=== PATIENT | female | born 1995 | race Two or more races ===

== ENCOUNTER 2022-06-16 11:28 | Inpatient (IN) | payer MEDICAID ==
[~2022-06-16] VITALS: Ht 157.5 cm; Wt 70.7 kg
[2022-06-16 11:51] LABS: Urine WBC None Seen /hpf (0 - 5)
[2022-06-16 12:15] LABS: Urine Amorphous Crystal MOD /hpf (None Seen); Urine Bacteria NONE SEEN /hpf (None Seen); Urine Blood Negative /uL (Negative); Urine Mucus FEW (None Seen); Urine Specific Gravity 1.025 (1.001-1.035)
[2022-06-16] MEDS ORDERED: ONDANSETRON ODT 4 MG TAB PO ONE (12:15)
[2022-06-16] MEDS ORDERED: FAMOTIDINE 20 MG TAB PO ONE (12:15)
[2022-06-16] MEDS ORDERED: LIDOCAINE VISCOUS 2% 15ML UD PO ONE (12:15)
[2022-06-16] MEDS ORDERED: MAALOX PLUS or MAALOX 30 ML PO ONE (12:15)
[2022-06-16 12:25] LABS: Basophils # (auto) 0 10 ^3/uL (0-0.2); Basophils % (auto) 0.2 % (0.0-2.0); Eosinophils # (auto) 0 10 ^3/uL (0-0.8); Eosinophils % (auto) 0.1 % (0.0-7.0); Hematocrit 39.4 % (36.0-46.0); Hemoglobin 13.4 g/dL (12.2-16.2); Lymphocytes % (auto) 6.2 % (10.0-50.0); Mean Corpuscular Hemoglobin 29.5 pg (28.0-32.0); Mean Corpuscular Hgb Conc. 34.1 g/dL (32.0-36.0); Mean Corpuscular Volume 86.5 fL (80.0-100.0); Monocytes # (auto) 0.3 10 ^3/uL (0-1.3); Monocytes % (auto) 1.8 % (0.0-12.0); Neutrophils # (auto) 14.8 10 ^3/uL (1.6-8.6); Neutrophils % (auto) 91.7 % (37.0-80.0); Nucleated Red Blood Cells % 0.1 %; Red Blood Cells 4.56 10^6/uL (4.0-5.20); Red Cell Distribution Width 13.9 % (11.8-14.3); White Blood Cell 16.1 10^3/uL (4.4-10.8)
[2022-06-16] MEDS ORDERED: CEPH-322 PO (15:23)
[2022-06-16] MEDS ORDERED: METOCLOPRAMIDE HCL 5MG/ml INJ 2ml VIAL IM ONE (16:15)
[2022-06-16 16:55] LABS: Albumin 4.2 g/dL (3.4-5.0); Calcium 8.9 mg/dL (8.5-10.1)
[2022-06-16 16:58] LABS: BUN/Creatinine Ratio 20.3; Bilirubin, Total 0.4 mg/dL (0.2-1.0); Total Protein 8.1 g/dL (6.4-8.2)
[2022-06-16 17:05] LABS: Potassium 3.5 mmol/L (3.5-5.1)
[2022-06-16] MEDS ORDERED: LACTATED RINGER'S 1,000 ML IV ONE (17:30)
[2022-06-16] MEDS ORDERED: OMEP-434 PO (17:33)
[2022-06-16] MEDS ORDERED: cefTRIAXone 1GM/50ML D5W 50 ML IV ONE (19:15)
[2022-06-16] MEDS ORDERED: metroNIDAZOLE 500MG/100ML 100 ML IV ONE (19:15)
[2022-06-16] MEDS ORDERED: KETOROLAC TROMETH 30 MG/ML 1ML VIAL IV ONE (20:15)
[2022-06-16] MEDS ORDERED: ACETAMINOPHEN 325 MG TAB PO PRN (20:30)
[2022-06-16] MEDS ORDERED: PANTOPRAZOLE 40 MG/10 ML VIAL INJ IV ONE (20:45)
[2022-06-17] MEDS ORDERED: VILA20TA PO (01:01)
[2022-06-17 01:02] VITALS: BP 109/53
[2022-06-17] MEDS: metroNIDAZOLE 500MG/100ML 100 ML IV SCH ×4 (02:00→22:13)
[2022-06-17] MEDS: LACTATED RINGER'S 1,000 ML IV SCH ×2 (04:46→16:15)
[2022-06-17 05:09] VITALS: BP 96/50
[2022-06-17 07:24] LABS: Basophils # (auto) 0 10 ^3/uL (0-0.2); Basophils % (auto) 0.3 % (0.0-2.0); Eosinophils # (auto) 0.2 10 ^3/uL (0-0.8); Eosinophils % (auto) 1.8 % (0.0-7.0); Lymphocytes # (auto) 2.8 10 ^3/uL (0.4-5.4); Lymphocytes % (auto) 26.3 % (10.0-50.0); Mean Corpuscular Hemoglobin 29.6 pg (28.0-32.0); Mean Corpuscular Hgb Conc. 34.4 g/dL (32.0-36.0); Mean Corpuscular Volume 85.9 fL (80.0-100.0); Monocytes # (auto) 0.7 10 ^3/uL (0-1.3); Monocytes % (auto) 6.4 % (0.0-12.0); Neutrophils % (auto) 65.2 % (37.0-80.0); Nucleated Red Blood Cells % 0.1 %; Red Blood Cells 4.07 10^6/uL (4.0-5.20); Red Cell Distribution Width 13.5 % (11.8-14.3); White Blood Cell 10.8 10^3/uL (4.4-10.8)
[2022-06-17 07:47] LABS: Albumin 3.1 g/dL (3.4-5.0); BUN/Creatinine Ratio 22.6; Calcium 8.6 mg/dL (8.5-10.1); Potassium 3.7 mmol/L (3.5-5.1)
[2022-06-17 07:50] LABS: Bilirubin, Total 0.8 mg/dL (0.2-1.0); Total Protein 6.3 g/dL (6.4-8.2)
[2022-06-17 09:00] VITALS: BP 101/58
[2022-06-17 09:17] LABS: INR 1.05 (0.9-1.15); Partial Thromboplastin Time 27.3 sec (24.6-33.4)
[2022-06-17] MEDS: cefTRIAXone 1GM/50ML D5W 50 ML IV SCH (10:23)
[2022-06-17] MEDS: PANTOPRAZOLE 40 MG/10 ML VIAL INJ IV SCH (10:23)
[2022-06-17] MEDS ORDERED: MORPHINE SULFATE INJ 2 MG/ml SYRG IV PRN (11:00)
[2022-06-17] MEDS ORDERED: HYDROcodone-ACET 5/325MG TAB PO PRN (11:00)
[2022-06-17] MEDS ORDERED: BUPIVACAINE HCL 0.25% P/F 10 ML VIAL ONE (12:23)
[2022-06-17] MEDS ORDERED: LIDOCAINE W/ EPINEPHRINE 2% INJ 20ML VIAL ONE (12:23)
[2022-06-17] MEDS ORDERED: SODIUM CHLORIDE LOCK 10 ML ONE (12:24)
[2022-06-17] MEDS ORDERED: metroNIDAZOLE 500MG/100ML 100 ML IV ONE (12:32)
[2022-06-17] MEDS ORDERED: fentaNYL CITRATE 100 MCG/2 ML VL ONE (12:33)
[2022-06-17] MEDS ORDERED: MEPERIDINE HCL (50 MG/ML) 1 ML VIAL ONE (12:34)
[2022-06-17] MEDS ORDERED: MIDAZOLAM HCL 2MG/2ML 2ml VIAL (1mg/ml) ONE (12:34)
[2022-06-17] MEDS ORDERED: LABETALOL HCL 5 MG/ML 4ML SYRINGE IV PRN (13:00)
[2022-06-17] MEDS ORDERED: ONDANSETRON HCL 4 MG/2 ML VIAL IV PRN (13:00)
[2022-06-17] MEDS ORDERED: ePHEDrine SULFATE 50 MG/ML AMP IV PRN (13:00)
[2022-06-17] MEDS ORDERED: MIDAZOLAM HCL 2MG/2ML 2ml VIAL (1mg/ml) IV PRN (13:00)
[2022-06-17] MEDS ORDERED: MORPHINE SULFATE 4 MG/ML SYR/VIAL IV PRN (13:00)
[2022-06-17] MEDS ORDERED: DexAMETHasone SOD PHOS 10MG/1ML VIAL INJ ONE (13:01)
[2022-06-17] MEDS ORDERED: PROPOFOL 10 MG/ML 20 ML IV ONE (13:01)
[2022-06-17] MEDS ORDERED: SUGAMMADEX 200mg/2ml Vial (100MG/ML) IV ONE (13:20)
[2022-06-17] MEDS ORDERED: D5W/SOD CHL 0.45%/KCL 20MEQ 1,000 ML IV ONE (13:30)
[2022-06-17] MEDS: ONDANSETRON HCL 4 MG/2 ML VIAL IV PRN ×2 (14:06→22:13)
[2022-06-17] MEDS: HYDROmorphone HCL 2 MG/ML VL/or syr IV PRN ×2 (14:15→14:25)
[2022-06-17 17:00] VITALS: BP 129/88
[2022-06-17] MEDS: KETOROLAC TROMETH 30 MG/ML 1ML VIAL IV PRN (18:19)
[2022-06-17 22:00] VITALS: BP 122/71
[2022-06-18] MEDS: KETOROLAC TROMETH 30 MG/ML 1ML VIAL IV PRN (01:24)
[2022-06-18] MEDS: LACTATED RINGER'S 1,000 ML IV SCH ×2 (02:15→12:15)
[2022-06-18 05:00] VITALS: BP 121/73
[2022-06-18] MEDS: metroNIDAZOLE 500MG/100ML 100 ML IV SCH (06:02)
[2022-06-18 07:06] LABS: Basophils # (auto) 0 10 ^3/uL (0-0.2); Eosinophils # (auto) 0 10 ^3/uL (0-0.8); Hematocrit 26.7 % (36.0-46.0); Hemoglobin 9.2 g/dL (12.2-16.2); Mean Corpuscular Hgb Conc. 34.5 g/dL (32.0-36.0); Mean Corpuscular Volume 86.9 fL (80.0-100.0); Monocytes # (auto) 0.6 10 ^3/uL (0-1.3); Monocytes % (auto) 4.8 % (0.0-12.0); Neutrophils # (auto) 11.4 10 ^3/uL (1.6-8.6); Neutrophils % (auto) 87.2 % (37.0-80.0); Red Blood Cells 3.07 10^6/uL (4.0-5.20); Red Cell Distribution Width 13.7 % (11.8-14.3)
[2022-06-18 07:26] LABS: Calcium 8.2 mg/dL (8.5-10.1); Potassium 3.8 mmol/L (3.5-5.1)
[2022-06-18 07:29] LABS: Bilirubin, Total 0.8 mg/dL (0.2-1.0); Total Protein 5.8 g/dL (6.4-8.2)
[2022-06-18 09:00] VITALS: BP 108/72
[2022-06-18] MEDS: PANTOPRAZOLE 40 MG/10 ML VIAL INJ IV SCH (10:14)
[2022-06-18] MEDS: cefTRIAXone 1GM/50ML D5W 50 ML IV SCH (10:14)
[2022-06-18] MEDS ORDERED: TRAM50TA2 PO (11:43)
[2022-06-18] MEDS ORDERED: DOCU-94 PO (11:43)
[2022-06-18] MEDS ORDERED: CEPH-510 PO (11:43)
[2022-06-18] MEDS ORDERED: PANT40TA2 PO (11:43)
[2022-06-18 13:00] VITALS: BP 113/62
[2022-06-18 16:47] VITALS: BP 106/68
== END 2022-06-18 18:35 | disposition home or self-care (01) | DRG 710 ==
LOC: ER 11:28 → OVERFLOW 20:18 → WEST WING 23:34
PROVIDERS: ADMIT Nurse Practitioner Family; ATTEND Internal Medicine
PROC: 0DTJ4ZZ Resection of Appendix, Percutaneous Endoscopic Approach (ICD-10-PCS; principal; 2022-06-17 12:33)
DX: A41.9 Sepsis, unspecified organism (principal); K35.80 Unspecified acute appendicitis; N39.0 Urinary tract infection, site not specified; Z20.822 Contact with and (suspected) exposure to COVID-19; Z79.899 Other long term (current) drug therapy
CPT/HCPCS: 36415; 74176; 76705; 80053; 81001; 81025; 83690; 85025; 85610; 85730; 86850; 86900; 86901; 87070; 87075; 87081; 87205; 87426; 96365; 96372; C9113; G0378; J0696; J1100; J1885; J2250; J2405; J2704; J3490; Q0162